=== PATIENT | male | born 2000 | race Caucasian/White ===

== ENCOUNTER 2024-09-09 18:53 | Emergency (ER) | payer OTHER, SELFPAY ==
--- OUTSIDE RECORDS SUMMARY | 2024-09-09 18:56 | XMS_ITS | Referral Summary ---
Author Organization [facility] [employer] Address [address] [place] [address] Care Team Providers Care Lpn Cma Name Role Phone Unavailable Primary Care Provider Unavailabl e Source Comments [facility],non-owned Affiliates and Associated Physician Practices is amultiple site organization consisting of ambulatory clinics and hospital sitesin [place], [place], [place] and [place]. This disclosure is being madepursuant to the Care Everywhere program and may not contain all information available regarding this patient. Last updated 18.[facility] [employer] Allergies No known active allergies Medications Be aware that medications may not be up to date on this document. Always verify current medications with the patient. No known medications Active Problems No known active problems Immunizations Name Administration Dates Next Due INFLUENZA VACCINE, TRIV. (AF LURIA, FLUZONE TRIVALENT; 6MO+) (IIV3) 07/01/2012,06/08/2011,07/26/2007 DTaP VACCINE IM (6wk-6yrs) 03/26/2004,,03/05/1999,12/31,1998 HEP A PEDS 2 DOSE 06/04/2004,06/08/2003 HEP B VACCINE, PED/ADOL 1998,1998, HIB BOOSTER 12/23/1999,199 9,1998,10/24 INFLUENZA VACCINE 03/20/2010,200 9,06/27/2008,07/07,06/08/2005,08/18/2004,06/04/2004 INFLUENZA VACCINE, QUADR. (F LUZONE; FLULAVAL; FLUARIX; AFLURIA QUADRIVALENT; 6MO+), 0.5 ML (IIV4) 07/02/2015,07/27/2014 MENINGOCOCAL MENINGITIS 03/20/2010 MENINGOCOCCAL CONJUGATE (MCV4P) 07/02/2015 MMR 03/26/2004,08/20/1999 POLIO IPV 03/26/2004, 0,1998,10/24 ROTAVIRUS, PENTAVALENT 1998,1998 TDAP (7yrs+) 03/20/2010 VARICELLA 03/20/2010,09/01/1999 Social History Tobacco Use Types Packs/Day Years Used Date Smoking Tobacco: Never Alcohol Use Standard Drinks/Week Comments Not Asked 0 (1 standard drink = 0.6 oz pur e alcohol) Sex and Gender Information Value Date Recorded Sex Assigned at Not on file Gender Identity Not on file Sexual Orientation Not on file Last Filed Vital Signs Vital Sign Reading Time Taken Comments Blood Pressure 105/59 07/01/2012 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
--- OUTSIDE RECORDS SUMMARY | 2024-09-09 18:56 | XMS_ITS | Clinical Summary ---
Author Organization [facility] [employer] Address [address] [place] [address] Care Team Providers Care Oil Well Services Supervisor Name Role Phone Unavailable Primary Care Provider Unavailabl e Source Comments [facility],non-owned Affiliates and Associated Physician Practices is amultiple site organization consisting of ambulatory clinics and hospital sitesin [place], [place], [place] and [place]. This disclosure is being madepursuant to the Care Everywhere program and may not contain all information available regarding this patient. 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 VESSEL MATE Pulse 62 07/01/2012 9:00 AM FISHING VESSEL MATE Temperature 37.3 ??C (99.1 ??F) 08/18/2016 10:[address] Respiratory Rate - - Oxygen Saturation - - Inhaled Oxygen Concentration - - Weight 78.5 kg (173 lb) 08/18/2016 10:53 AM FISHING VESSEL MATE Height 181 cm (5' 11.25 ) 08/18/2016 10:53 AM CS T Body Mass Index 23.96 08/18/2016 10:53 AM FISHING VESSEL MATE Plan of Treatment Health Maintenance Due Date Last Done Comments HEPATITIS B VACCINE (4 of 4 - 4-dose series) 02/11/1999 1998, 1998, 1998 HIV SCREENING 2013 HPV VACCINE (1 - Male 3-dose series) 2013 HEPATITIS C SCREENING 08/09/2016 DTAP/TDAP/TD VACCINES (7 - Td or Tdap) 03/20/2020 03/20/2010, 03/26/2004, 12/23/1999, Additional history exists COVID-19 VACCINE ( - season) 2024 INFLUENZA VACCINE (#1) 2024 5, 07/27/2014, 07/01/2012, Additional history exists DEPRESSION SCREENING 08/09/2024 ZOSTER VACCINE (1 of 2) 2048 HIB VACCINE Completed 12/23/1999, 02/07, 1998, Additional history exists MENINGOCOCCAL VACCINE Completed 07/02/2015, 010 MENINGOCOCCAL (Group B) VACCINE Aged Out No longer eligible based on patient's age to complete this topic PNEUMOCOCCAL VACCINE Aged Out No long er eligible based on patient's age to complete this topic
--- OUTSIDE RECORDS SUMMARY | 2024-09-09 18:56 | XMS_ITS | Continuity of Care Document ---
Author Organization [facility] Address [address] [place] [address] Phone Care Team Providers Care Central Station Operator Name Role Phone Mitch Wallis MD Unavailable Unavailable Allergies, Adverse Reactions, Alerts Substance Reaction Status Criticality No Known Allergies Active No Inform ation Medications Medication Instructions Dosage Effective Dates (start - stop) Status Comments Adderall 20 mg tablet take 1 tablet by oral route 2 times every day before breakfast and at noon 20 MG - Active disp 10/27/19 Vistaril 50 mg capsule take 1 capsule by oral route every bedtime as needed 50 MG - Active PRN for insomnia, avoid driving or operate machines Problems Condition Type Effective Dates (start - stop) Clini ange Status Comments No Known Problems Procedures Procedure Date OFFICE/OUTPATIENT VISIT, EST PREV VISIT, EST, AGE 18-39 OFFICE/OUTPATIENT VISIT, EST OFFICE/OUTPATIENT VISIT, EST OFFICE/OUTPATIENT VISIT, EST OFFICE/OUTPATIENT VISIT, EST OFFICE/OUTPATIENT VISIT, EST PREV VISIT, NEW, AGE 18-39 OFFICE/OUTPATIENT VISIT, NEW Advance Directives Directive Yes / No Effective Date File Name No Information Encounters Encounter Description Practice Location Reason(s) For Visit Diagnoses Date Provider Providers Copied on Encounter [facility], [address], [id number], [place] tel:[phone] [facility] No Information 0 Bimal Meyer. [address], [place], [place], [address] , [place]. tel:[phone] Referring Provider: Sameera Cowan [address], [place], [place], [id number]. tel:[phone] OFFICE/OUTPAT IENT VISIT, [facility], [address], [place], [place], [address], [place] tel:[phone] [facility] insomnia1 (chief complaint) ADD (chief complaint) Attention deficitInsomnia Jf-2 0-202 0 Bimal Meyer. [address], [address], [place], [place], [address] , [place]. tel:[phone] Referring Provider: Sameera Cowan [address], [place], [place], [address]. tel:[phone] PREV VISIT, EST, AGE 18-39 [facility], [address], [place], [place], [address], [place] tel:[phone] [facility] PHysical (chief complaint) Encounter for general adult medical exam w abnormal findingsAttention deficit Sep-2 5-201 9 Bimal Meyer. [address], [address], [place], [place], [address] , [place]. tel:[phone] Referring Provider: Sameera Cowan [address], [place], [place], [address]. tel:[phone] OFFICE/OUTPAT IENT VISIT, [facility], [address], [place], [place], [address], [place] tel:[phone] [facility] ADD (chief complaint) Attention deficit Dirk-0 6-201 9 Bimal Meyer. [address], [address], [place], [place], [address] , [place]. tel:[phone] Referring Provider: Sameera Cowan [address], [place], [place], [address]. tel:[phone] OFFICE/OUTPAT IENT VISIT, [facility], [address], [place], [place], [address], [place] tel:[phone] [facility] ADD1 (chief complaint) Attention deficit Oct- 9 Bimal Meyer. [address], [address], [place], [place], [address] , [place]. tel:[phone] Referring Provider: Mitch Wallis, [address], [place], [place], [address]. tel:[phone] OFFICE/OUTPAT IENT VISIT, [facility], [address], [place], [place], [address], [place] tel:[phone] [facility] ADD (chief complaint) Attention deficit 8 Bimal Meyer. [address], [address], [place], [place], [address] , [place]. tel:[phone] Referring Provider: Mitch Wallis, [address], [place], [place], [address]. tel:[phone] OFFICE/OUTPAT IENT VISIT, [facility], [address], [place], [place], [address], [place] tel:[phone] [facility] ADD (chief complaint) Attention deficit 8 Bimal Meyer. [address], [place], [place], [address] , [place]. [phone] Referring Provider: Sameera Cowan [address], [place], [place], [address]. tel:[phone] PREV VISIT, NEW, AGE 18-39 [facility], [address], [place], [place], [address], [place] [phone] [facility] PHysical (chief complaint) Encounter for general adult medical exam w abnormal findingsAttention deficit Sep 8 Bimal Meyer. [address], [place], [place], [address] , [place]. tel:[phone] Referring Provider: Sameera Cowan [address], [place], [place], [address]. tel:[phone] Family History Family Member Type Diagnosis Age At Onset Father Problem (finding) Alive and well Mother Problem (finding) Alive and well Brother Problem (finding) Alive and well Payers Payer name Insurance type Covered constitution party ID Authoriza tion(s) No Information Social History Type Description Quantity Date Captured Comments Alcohol Use Details Unknown Caffeine Use Details Unknown Tobacco Use Status No Information Smoking Status No Information Sex Male Chief Complaint And Reason For Visit No Information Plan Of Treatment Date Type Action Status Goal Special diet education compl eted History Of Present Illness Encounter Date Complaint History Of Prese nt Illness ADD Pt has ADD pt do ing ok with adderall. Pt feels more focused . Pt denies any chest pain or headache insomnia1 Pt has intermitt ent insomnia Pt denies any snoring Pt denies any trouble with breathing at night Pt does a lo tof shift work and sometimes he works during the day and sometimes at night and he has difficulty falling asleep at night sometimes Pt failed OTC melanotonin PHysical Pt needs annual physical. Pt has ADD, inattentive type. Patient feels scatterbrained. Patient feel poor focus and difficulty completing tasks. Patient states that Adderall is helping with symptoms. Patient feels more focused. Pt feels more energy. Patient denies any headache, dry mouth, headache, chest pain. Patient denies any appetite loss. Patient denies any other complaints ADD Patient has ADD. Patient has inattentive type. Patient feels scatterbrained. Patient feel poor focus and difficulty completing tasks. Patient states that Adderall is helping with symptoms. Patient feels more focused. Pt feels more energy. Patient denies any headache, dry mouth, headache, chest pain. Patient denies any appetite loss. ADD1 Pt has ADD, inat tentive type Pt has difficulty with focus and concentration. Pt feels much improved with adderall. Pt feels more motivated and more efficient at work. Pt states that the 2nd dose of adderall which is 10 mg in the afternoon does not last long enough for him to go through his work days. Pt denies any side effects. ADD Pt has ADD, inat tentive type. Pt doing much better with adderall with booster dose in the early afternoon. Pt feels more focused. Pt denies any dry mouth, chest pain, palpitation, etc. ADD Patient has ADD. Patient has not inattentive type. Patient feels scatterbrained. Patient feel poor focus and difficulty completing tasks. Patient states that Adderall is helping with symptoms. Patient feels more focused. Pt feels more energy. Patient denies any headache, dry mouth, headache, chest pain. Patient denies any appetite loss. Patient stated that Adderall initially worked really well however he noticed that he only last about 4 5 hours and he noticed the medication wears off around noontime PHysical Pt needs annual physical. Pt has ADD, inattentive type since high school Pt was never treated Pt has difficulty with focus and concentration. Pt has difficulty following instructions pt feels easily distracted Pt also is taking online class for stock trading at night and he noticing that he cannot sit through the class without wondering around and not remembering anything. His friend and co worker told him about adderall which did help his friend pt wants to try adderall aslo. Pt denies any other complaints Instructions Date Instruction Additional Infor mation Increase physical activity Relat ed to Encounter for general adult medical exam w abnormal findings Special diet education Related t o Body mass index (BMI) 23.0-23.9, adult Increase physical activity Relat ed to Attention deficit Weight management Related to Att ention deficit Increase physical activity Relat ed to Attention deficit Weight management Related to Att ention deficit Increase physical activity Relat ed to Attention deficit Increase physical activity Relat ed to Attention deficit Increase physical activity Relat ed to Encounter for general adult medical exam w abnormal findings Assessments Type Assessment Date No Information
--- OUTSIDE RECORDS SUMMARY | 2024-09-09 18:56 | XMS_ITS | Encounter Summary ---
Author Organization [facility] Address [address] [place] [address] Care Team Providers Care Party Plan Demonstrator Name Role Phone Deann Vizcaino MD Primary Care Provider [phone] Mathieu Dsouza MD Primary Care Provider [phone] Whit Cheatham MD Primary Care Provider [phone] Encounter Details Date Type Department Care Team (Late st Contact Info) Description 12/15/2011 [facility] Outpatient Visit [facility] [address] [place] [address] Deann Vizcaino MD [address] [place] [address] Social History Tobacco Use Types Packs/Day Years Used Date Smoking Tobacco: Never Assessed Sex and Gender Information Value Date Recorded Sex Assigned at Not on file Gender Identity Not on file Sexual Orientation Not on file documented as of this encounter Plan of Treatment Not on file documented as of this encounter Visit Diagnoses Not on filedocumented in this encounter Care Teams Party Plan Demonstrator Relationship Specialty Start Date End Date Deann Vizcaino MD PCP - General Pediatrics 10/01/11 05/13/14 Mathieu Dsouza MD [address] [place], [place] [id number] PCP - General Pediatrics 05/14/14 10/21/14 Whit Cheatham MD [address] [place], [place] [id number] PCP - General Pediatrics 10/22/14 08/30/17 documented as of this encounter
--- OUTSIDE RECORDS SUMMARY | 2024-09-09 18:56 | XMS_ITS | Patient Health Summary ---
Author Organization [facility] [employer] Address [address] [place] [address] Care Team Providers Care Uptwist Spinner Name Role Phone Unavailable Primary Care Provider Unavailabl e Note from [facility],non-owned Affiliates and Associated Physician Practices is amultiple site organization consisting of ambulatory clinics and hospital sitesin [place], [place], [place] and [place]. This disclosure is being madepursuant to the Care Everywhere program and may not contain all information available regarding this patient. Last updated 18.[facility] [employer] Allergies No known active allergies Medications Be aware that medications may not be up to date on this document. Always verify current medications with the patient. No known medications Active Problems No known active problems Immunizations * INFLUENZA VACCINE, TRIV. (AFLURIA, FLUZONE TRIVALENT; 6MO+) (IIV3)(Given 07/01/2012, 06/08/2011, 07/26/2007) * DTaP VACCINE IM (6wk-6yrs)(Given 03/26/2004, 12/23/1999, 03/05/1999, 1998, 1998) * HEP A PEDS 2 DOSE(Given 06/04/2004, 06/08/2003) * HEP B VACCINE, PED/ADOL(Given 1998, 1998, 1998) * HIB BOOSTER(Given 12/23/1999, 03/05/1999, 1998, 1998) * INFLUENZA VACCINE(Given 03/20/2010, 04/16/2009, 06/27/2008, 07/07/2006, 06/08/2005, 08/18/2004, 06/04/2004) * INFLUENZA VACCINE, QUADR. 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 HOSPITALIST Pulse 62 07/01/2012 9:00 AM HOSPITALIST Temperature 37.3 ??C (99.1 ??F) 08/18/2016 10:[address] Respiratory Rate - - Oxygen Saturation - - Inhaled Oxygen Concentration - - Weight 78.5 kg (173 lb) 08/18/2016 10:53 AM HOSPITALIST Height 181 cm (5' 11.25 ) 08/18/2016 10:53 AM CS T Body Mass Index 23.96 08/18/2016 10:53 AM HOSPITALIST Procedures * STREP A SCREEN - POINT OF CARE (AMB)(Performed 08/18/2016) Performed for Strep throat * XR THORACIC SPINE 2VW(Performed 09/13/2014) Performed for Upper back pain, chronic Results * (ABNORMAL) STREP A SCREEN - POINT OF CARE (AMB) (08/18/2016) Strep A Rapid POCT Positive(A) Negative Strep A Internal Control Present Other ENTIRE THROAT (SURFACE REGION OF NECK) / Unknown 08/18/2016 Bennett Santamaria DO LAB - POINT OF CARE ORDERABLES * XR THORACIC SPINE 2 VW (09/13/2014) Anatomical Region Laterality Modality Spine Other Mathieu Dsouza MD DIAGNOSTIC REECE G ORDERABLES
--- OUTSIDE RECORDS SUMMARY | 2024-09-09 18:56 | XMS_ITS | Clinical Summary ---
Author Organization [facility] Address [address] [place] [address]. [place] [address] [place] [address] Care Team Providers Care Cocoa Powder Mixer Operator Name Role Phone Edy Frausto MD Primary Care Provider [phone] Allergies No known active allergies Medications amphetamine-dext roamphetamine 20 MG tablet TK 1 T PO BID B AMALIA AND AT NOON 11/20/2019 Active HYDROcodone-acet aminophen 7.5-325 MG tablet TK 1 T PO Q 6 H FOR 7 DAYS PRN 11/23/2019 Active hydrOXYzine 50 MG capsule TK 1 C PO QHS PRN 08/28/2019 Active Social History Tobacco Use Types Packs/Day Years Used Date Smoking Tobacco: Never Assessed Sex and Gender Information Value Date Recorded Sex Assigned at Not on file Legal Sex Male 6:33 PM CDT Gender Identity Not on file Sexual Orientation Not on file Plan of Treatment Health Maintenance Due Date Last Done Comments Hepatitis B Vaccines (4 of 4 - 4-dose series) 02/11/1999 1998, 1998, 1998 Annual Physical 2001 PHQ-2 (Physician [place]) 2010 HPV Vaccines (1 - Male 3-dose series) 2013 Hepatitis C 2016 COVID-19 Vaccine ( - 2023- season) 2024 Influenza Adult (#1) 2024 07/16/2017, 07/02/2015, 07/27/2014, Additional history exists PHQ-2 (Physician [place]) 08/09/2024 DTaP, Tdap and Td Vaccines (8 - Td or Tdap) 04/08/2030 04/08/2020, 03/20/2010, 03/26/2004, Additional history exists Meningococcal Vaccine Completed 07/02/2015, 010 Meningococcal B Vaccine Aged Out No l onger eligible based on patient's age to complete this topic Pneumococcal Vaccine: Pediatrics (0 to 5 Years) and At-Risk Patients (6 to 64 Years) Aged Out No longer eligible based on patient's age to complete this topic RSV Immunizations Under 20 Months Aged Out No longer eligible based on patient's age to complete this topic Insurance [employer] [facility] [employer] [employer] Care Teams Cocoa Powder Mixer Operator Relationship Specialty Start Date End Date Edy Frausto MD [address] [place] [address] PCP - General FAMILY PRACTICE 03/21/24
--- OUTSIDE RECORDS SUMMARY | 2024-09-09 18:59 | XMS_ITS | Continuity of Care Document ---
Author Organization [facility] Address [address] [place] [address] Phone Care Team Providers Care Oven Technician Name Role Phone Mitch Wallis MD Unavailable Unavailable Allergies, Adverse Reactions, Alerts Substance Reaction Status Criticality No Known Allergies Active No Inform ation Medications Medication Instructions Dosage Effective Dates (start - stop) Status Comments Vistaril 50 mg capsule take 1 capsule by oral route every bedtime as needed 50 MG - Active PRN for insomnia, avoid driving or operate machines Adderall 20 mg tablet take 1 tablet by oral route 2 times every day before breakfast and at noon 20 MG - Active disp 10/27/19 Problems Condition Type Effective Dates (start - [...] Diagnoses Date Provider Providers Copied on Encounter [facility], [address] [place], [address], [place] tel:[phone] [facility] No Information 0 Bimal Meyer. [address], [place], [place], [address] , [place]. tel:[phone] Referring Provider: Sameera Cowan [address], [place], [place], [address]. tel:[phone] OFFICE/OUTPAT IENT VISIT, [facility], [address], [place], [place], [address], [place] tel:[phone] [facility] insomnia1 (chief complaint) ADD (chief complaint) Attention deficitInsomnia Jf-2 0-202 0 Bimal Meyer. [address], [place], [place], [address] , [place]. tel:[phone] Referring Provider: Sameera Cowan [address], [place], [place], [address]. tel:[phone] PREV VISIT, EST, AGE 18-39 [facility], [address], [place], [place], [address], [place] tel:[phone] [facility] PHysical (chief complaint) Encounter for general adult medical exam w abnormal findingsAttention deficit Sep-2 5-201 9 Bimal Meyer. [address], [place], [place], [address] , [place]. tel:[phone] Referring Provider: Sameera Cowan [address], [place], [place], [address]. tel:[phone] OFFICE/OUTPAT IENT VISIT, [facility], [address], [place], [place], [address], [place] tel:[phone] [facility] ADD (chief complaint) Attention deficit Dirk-0 6-201 9 Bimal Meyer. [address], [place], [place], [address] , [place]. tel:[phone] Referring Provider: Sameera Cowan [address], [place], [place], [address]. tel:[phone] OFFICE/OUTPAT IENT VISIT, [facility], [address], [place], [address], [place] tel:[phone] [facility] ADD1 (chief complaint) Attention deficit Oct- 9 Bimal Meyer. [address], [place], [place], [address] , [place]. tel:[phone] Referring Provider: Mitch Wallis, [address], [place], [place], [address]. tel:[phone] OFFICE/OUTPAT IENT VISIT, [facility], [address], [place], [place], [address], [place] tel:[phone] [facility] ADD (chief complaint) Attention deficit 8 Bimal Meyer. [address], [place], [place], [address] , [place]. tel:[phone] Referring Provider: Mitch Wallis, [address], [place], [place], [address]. tel:[phone] OFFICE/OUTPAT IENT VISIT, [facility], [address], [place], [address], [place] tel:[phone] [facility] ADD (chief complaint) Attention deficit 8 Biaml Meyer. [address], [place], [place], [address] , [place]. [phone] Referring Provider: Sameera Cowan [address], [place], [place], [address]. tel:[phone] PREV VISIT, NEW, AGE 18-39 [facility], [address], [place], [place], [address], [place] [phone] [facility] PHysical (chief complaint) Encounter for general adult medical exam w abnormal findingsAttention deficit Sep 8 Bimal Meyer. [address], [place], [place], [address] , [place]. tel:[phone] Referring Provider: Sameera Cowan [address], [place], [place], [address]. tel:[phone] Family History Family Member Type Diagnosis Age At Onset Father Problem (finding) Alive and well Mother Problem (finding) Alive and well Brother Problem (finding) Alive and well Payers Payer name Insurance type Covered democrat ID Authoriza tion(s) No Information Social History [...] Date Complaint History Of Prese nt Illness insomnia1 Pt has intermitt ent insomnia Pt denies any snoring Pt denies any trouble with breathing at night Pt does a lo tof shift work and sometimes he works during the day and sometimes at night and he has difficulty falling asleep at night sometimes Pt failed OTC melanotonin ADD Pt has ADD pt do ing ok with adderall. Pt feels more focused . Pt denies any chest pain or headache PHysical Pt needs annual physical. Pt has [...] complaints Instructions Date Instruction Additional Infor mation Special diet education Related t o Body mass index (BMI) 23.0-23.9, adult Increase physical activity Relat ed to Encounter for general adult medical exam w abnormal findings Increase physical activity Relat ed to Attention [...]
--- OUTSIDE RECORDS SUMMARY | 2024-09-09 18:59 | XMS_ITS | Clinical Summary ---
Author Organization [facility] Address [address] [place] [address] Care Team Providers Care Skirt Clipper Name Role Phone Livan Harris MD Primary Care Provider + Allergies No known active allergies Medications dextroamphetamin e-amphetamine (ADDERALL) 30 mg tablet 30 mg 2 (two) times a day Active Active Problems Problem Noted Date Diagnosed Date Attention deficit hyperactivity disorder (ADHD) 04/08/2020 Assessment & Plan (04/08/2020 4:31 PM CDT): - pt dx 1 yr ago via previous PCM questions, no hx as child - discussed need for neuropsych testing to ensure this is ADHD since he has no hx of a need for stimulants as a child. - pt refused neuropsych testing at this time - pt to call back if he decides he is willing to do neuropsych testing and I will then rx stimulant once dx made by testing. Immunizations Name Administration Dates Next Due DTaP 03/26/2004, 0,03/05/1999,12/31,1998 Flucelvax Influenza Quad 07/16/2017 Hep A, Pediatric 06/04/2004,06/08/2003 Hep B, Adolescent or Pediatric 1998,1998,1998 HiB 12/23/1999, 9,1998,10/24 Hib (PRP-D) 12/23/1999, 9,1998,10/24 IPV 03/26/2004, 0,1998,10/24 Influenza, Quadrivalent, Spl it, Preservative Free, Intramuscular 07/02/2015,07/27/2014 Influenza, Trivalent, IM (MDV) 07/01/2012,2010,07/26/2007 Influenza, Unspecified 03/20/2010,2008,06/27/2008,07/07,06/08/2005,08/18/2004,06/04/2004 MMR 03/26/2004,08/20/1999 Meningococcal MCV4P (Menactra) 07/02/2015 Meningococcal Polysaccharide (Menomune) 03/20/2010 Rotavirus Pentavalent 1998,1998 Tdap 04/08/2020,03/20/2010 Varicella 03/20/2010,09/01/1999 Medical History Medical History Date Comments ADHD (attention deficit hyperactivity disorder) Family History Relation Name Status Comments Father Alive Mother Alive Social History Tobacco Use Types Packs/Day Years Used Date Smoking Tobacco: Never Alcohol Use Standard Drinks/Week Comments Never 0 (1 standard drink = 0.6 oz pur e alcohol) AUDIT-C Answer Date Recorded Q1: How often do you have a drink containing alc ohol? 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 Gender Identity Not on file Sexual Orientation Not on file Obstetrics History Last Filed Vital Signs Vital Sign Reading Time Taken Comments Blood Pressure 104/70 04/08/2020 4:16 PM CDT Pulse 64 04/08/2020 4:16 PM CDT Temperature 37.3 ??C (99.1 ??F) 04/08/2020 4:16 PM CD T Respiratory Rate 16 04/08/2020 4:16 PM CDT Oxygen Saturation 99% 04/08/2020 4:16 PM CDT Inhaled Oxygen Concentration - - Weight 76.7 kg (169 lb) 04/08/2020 4:16 PM CDT Height 179.1 cm (5' 10.5 ) 04/08/2020 4:16 PM CD T Body Mass Index 23.91 04/08/2020 4:16 PM CDT Plan of Treatment Not on file Insurance [facility] CMR Care Teams Skirt Clipper Relationship Specialty Start Date End Date Livan Harris MD [address] [place] [id number] PCP - General Family Medicine 04/08/20
--- OUTSIDE RECORDS SUMMARY | 2024-09-09 18:59 | XMS_ITS | Referral Summary ---
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
--- OUTSIDE RECORDS SUMMARY | 2024-09-09 18:59 | XMS_ITS | Data Portability ---
Author Organization [facility] Address [address] [place] [address] Care Team Providers Care Medical Clinic Manager Name Role Phone SAMMY FRAUSTO Primary Care Provider Unavailabl e Assessment Encounter Date Assessment Date Assessment LastModified by Organization Details LastModified Time 01/18/2024 01/18/2024 23 yo; No PMHx; presenting for left knee pain. [email or web address] Not available 01/18/2024 18:36:18 03/21/2024 03/21/2024 23 yo; No PMHx; presenting to the clinic for a follow up on his left knee pain. [email or web address] Not available 03/21/2024 12:56:28 Plan of Treatment Reminders Order Date Submit Date Provider Last Modified By Organization Details Last Modified Time Details Appointments None recorde d. Lab None recorde d. Referral physica l therapi st referra l 2023 024 [facility] (Outpatient Physical Therapy/Work Conditioning) , [facility]? [facility], [place], [address], 4 15:33:36 Procedures None recorde d. Surgeries None recorde d. Imaging XR, knee, 3 view 2023 024 [facility] ([facility]), [address] [place], [address], 4 10:48:58 XR, knee, 3 view 2023 024 [facility] Scheduling, [place], [address], 09:15:12 Medication Orders lidocai ne 5 % topical patch [address] [id number], [address] [place], [place], [id number], 12:55:32 ibuprof en 800 mg tablet 2023 024 [facility]6 [id number], [address], [place], [id number], 12:55:32 Patient TargetsNo targets recorded. Patient Instructions Encounter Date Encounter Id Patient Instructions Last Modified By Organization Details Last Modified Time 01/18/2024 [id number] I was present an d available in the Family Medicine clinic to discuss this patient's care for the duration of the appointment. I agree with the resident's assessment and plan as documented with the following addendum: None. Dr. Dragan Peck MD Attending Physician, [facility]. [email or web address] Not available 01/20/2024 10:13:35 03/21/2024 [id number] I was present an d available in the Family Medicine clinic to discuss this patient's care during the appointment. I agree with the resident's assessment and plan as documented. [email or web address] Not available 03/24/2024 14:37:11 Reason for Referral Physical Therapist Referral for Pain of left knee joint Referring Physician: Sammy Frausto, Medical Superintendent, Encounter Date: 03/21/2024 Results Created Date Observation Date Name Description Value Unit Range Abnormal Flag Note LastModifiedBy Organization Detail LastModifiedTime 03/21/20 24 XR, knee, [address] [facility] [address] [place] [address] 3 VIEWS OF THE LEFT KNEE Clinic al Histor y: Pain Compar mamadou: None 3 views of the left knee demons trate the bony elemen ts to be intact . There is no eviden ce of fractu re or disloc ation. The surrou nding soft tissue s appear normal . IMPRES MOISÉS: No acute findin gs Ordere d By: PARIS FRAUSTO Electr onical ly Signed By: Daniel alfaro MD on 2:41 PM Interp reted By: Daniel alfaro MD, 2:41 PM [facility] Scheduling [facility], [place], [address], 03/30/2024 09:17:10 Result Notes None recorded. Procedures Surgical History None recorded. Imaging Results Imaging Date Name Status LastModified by Organiz ation Details LastModified Time 03/21/2024 XR, knee, 3 view completed [facility] [place], [address], 03/30/2024 09:17:10 Procedure Notes None recorded. Medical Equipment None Reported. Allergies No known drug allergies Medications Name Sig Start Date Stop Date Status Note LastModified by Organization Details LastModified Time ibuprofen 800 mg tablet TAKE 1 TABLET BY MOUTH THREE TIMES DAILY active Not Available Not Available No t Available meloxicam 15 mg tablet Take 1 tablet every day by oral route. active Not Available Not Available No t Available meloxicam 7.5 mg tablet TAKE 1 TABLET BY MOUTH DAILY NEEDED active Not Available Not Available No t Available lidocaine 5 % topical patch APPLY 1 PATCH BY TOPICAL ROUTE ONCE DAILY (MAY WEAR UP TO 12HOURS.) active Not Available Not Available No t Available cyclobenzap rine 5 mg tablet TAKE 1 TABLET BY MOUTH THREE TIMES DAILY NEEDED active Not Available Not Available No t Available duloxetine 30 mg capsule,del ayed release TAKE 1 CAPSULE BY MOUTH EVERY DAY 03/21 completed Not Available Not Available Not Available diclofenac 1 % topical gel APPLY 2 GRAMS TOPICALLY TO THE AFFECTED AREA FOUR TIMES DAILY active Not Available Not Available No t Available Vitals Date Recorded Body height Provider Name an d Address Organization Details Last Updated DateTime 01/18/2024 182.88 cm Rhiannon Rios [place] [facility] 2023 16:54:39 Date Recorded Body mass index (BMI) Body weight Provider Name and Address Organization Details Last Updated DateTime 01/18/2024 26 kg/m2 89539.74 g JacobyAlma Delia Blanca CINTIA [facility] 01/18/2024 16:54:41 Date Recorded Body temperature Provider Name a nd Address Organization Details Last Updated DateTime 01/18/2024 97.4 [degF] Rhiannon Rios MA [facility] 01/18/2024 16:55:26 Date Recorded Oxygen saturation Oxygen saturation in Arterial blood by Pulse oximetry Provider Name and Address Organization Details Last Updated DateTime 01/18/2024 97 % 97 % JacobyAlma Delia Rios [facility] 01/18/2024 16:55:28 Date Recorded Heart rate Provider Name an d Address Organization Details Last Updated DateTime 01/18/2024 69 /min JacobyAlma Delia Rios [facility] 2023 16:55:32 Date Recorded Body height Provider Name an d Address Organization Details Last Updated DateTime 03/21/2024 182.88 cm Alex Irene MA [facility] 03/21/2024 10:00:02 Date Recorded Body temperature Provider Name a nd Address Organization Details Last Updated DateTime 03/21/2024 97.4 [degF] Alex Irene MA [facility] 03/21/2024 10:00:19 Date Recorded Body mass index (BMI) Body weight Provider Name and Address Organization Details Last Updated DateTime 03/21/2024 26.4 kg/m2 14178.72 g Alex Irene MA [facility] 03/21/2024 10:00:26 Date Recorded Oxygen saturation Oxygen saturation in Arterial blood by Pulse oximetry Provider Name and Address Organization Details Last Updated DateTime 03/21/2024 99 % 99 % Alex Irene MA [facility] 03/21/2024 10:00:37 Date Recorded Heart rate Provider Name an d Address Organization Details Last Updated DateTime 03/21/2024 60 /min Alex Irene MA [facility] 03/09 10:00:41 Date Recorded Systolic blood pressure Diastolic blood pressure Provider Name and Address Organization Details Last Updated DateTime 01/18/2024 114 mm[Hg] 72 mm[Hg] Rhiannon Rios MA [place] [facility] 01/18/2024 16:55:53 Date Recorded Systolic blood pressure Diastolic blood pressure Provider Name and Address Organization Details Last Updated DateTime 03/21/2024 115 mm[Hg] 73 mm[Hg] Alex Irene MA [place] - [facility] 03/21/2024 10:01:26 Social History Question Answer Notes LastModified by Organizat ion Details LastModified Time Tobacco Smoking Status Never Smoker Rhiannon Rios MA null, [place] [facility] 01/18/2024 16:54:33 What Was The Date Of Your Most Recent Tobacco Screening? 03/21/2024 [email or web address] Information not available 03/21/2024 Sex: Unknown Functional Status None recorded. Mental Status None recorded. Family History Nothing Reported. Medical History No medical history recorded. Past Encounters Encounter ID Performer Location Encounter Start Date Encounter Closed Date Diagnosis/Indication Diagnosis SNOMED-CT Code Diagnosis ICD10 Code Diagnosis Note [id number] DRAGAN PECK MD [facility] [address] [address] 01/18/2024 16:46:33 01/20/2024 14:53:48 Pain of left knee joint [id number] 56389 M25.562 Acute on chronic. States that in 2017 he had an avulsion fracture on his distal medial left sided femur, which later had stepped incorrectl y, which shifted the avulsed bone onto his patella tendon. S/P surgery, with removal of the avulsed bone. Prior to surgery was unable to extend his knee. Pain is a 3-4/10 at rest, 7-8/10 with walking and weight bearing. Occasional ly utilizes tylenol with some alleviatio n. Works in [employer] on and is often on his B/L knees.- PE with tenderness of medial aspect of left knee joint. Negative anterior / posterior drawer and varus / valgus stress test. Strength and neurovascu larly intact. Pt stated that he had pain around his knee with extension. - No xrays in our records, will obtain xrays of left knee- Pt reported getting PLT injections in his left knee in the past. Stated that he did not feel like they alleviated any of the pain- Offered orthopedic referral for discussion for knee injections ; however, pt would like to hold off for now- Further management pending imaging [id number] Ernie Meadows MD [facility] 47 3 [facility] [address] [place] [address] 03/21/2024 09:48:39 03/27/2024 09:50:15 Pain of left knee joint [id number] 27352 M25.562 Acute on chronic.St ates that [id number] had an avulsion fracture on his distal medial left sided femur, which later had stepped incorrectl y, which shifted the avulsed bone onto his patella tendon.S/P surgery, with removal of the avulsed bone. Prior to surgery was unable to extend his knee. Pain is a 5-6/10 at rest, 9-10/10 after traveling. Reports self medicating with oxy with alleviatio n. Works in [employer] on and is sometimes on his B/L knees.- Previous PE on 01/18/2024 with tenderness of medial aspect of left knee joint. Negative anterior / posterior drawer and varus / valgus stress test. Strength and neurovascu larly intact. Pt stated that he had pain around his knee with extension. o- No xrays in our records, will obtainxray sof left knee.- Pt reported gettingPRP injections in his left knee in the past. Stated that he did not feel like they alleviated any of the pain. States that he had several injections in the past.- Offeredort hopedic referralfo r discussion of further evaluation given hx of surgery and possible future referral to pain medicine if pain continues to be refractory - Pt states that he is not interested in injections or surgical interventi ons at this time, requesting pain medication s- D/w pt supportive conservati ve therapy at this time, however, pt requesting further pain control. D/w pt that narcotics are not indicated and the risks of self medicating with opioids Plan:- Discontinu ed duloxetine as it has not been helping- Startibupr ofen 800mgup to 3xday- Trial lidocaine patches- PT referral placed- Xray orders in- F/u in 4-6 weeks, if pain is not improved will consider tramadol. Health Concerns Section Related Observation LastModified by Organization Detai ls LastModified Time None Recorded Concern Status LastModified by Organization Details LastModified Time None Recorded Advance Directives Directive None Recorded Payers Encounter Date Sequence Insurance Name Policy Number Policy Renteria Covered Member ID Renteria Member ID Guarantor Name 01/18/2024 1 *SELF PAY* Dr juan Alanis 03/21/2024 1 [employer] [id number] Ralph Alanis [id number] Ralph Alanis Notes Date Note Type Note Provider Name and Address Organization Details Recorded Time 01/18/2024 text/html 23 yo; No PMHx; presenting for left knee pain. DRAGAN PECK MD Attn: Accounting,[address] [place], [address], [facility] 01/20/2024 10:13:42 03/21/2024 text/html 23 yo; No PMHx; presenting to the clinic for a follow up on his left knee pain.He has tried PRP shot 1x/year for 3 years, last shot 1-2 years ago, reports it did not help too much.Additionally reports duloxetine has not helped.He reports self medicating with oxy once every ~2wks to help with pain as it gets to 9-10/10 after sitting for several hours as he has to travel a lot for his job. Pain is 5-6/10 at baseline.Addition ally, after surgery in [id number] he tried PT 1-2x/week for a short while but reports it did not help, he reports it is difficult to attend consistent PT as he travels for his job.Last x-ray around ~1yr ago, he reports it was normal and will attempt to get the imaging from his previous provider. Pt denies having any fevers, chills, SOB, chest pain, N/V, or abdominal pain. Ernie Meadows MD Attn: Accounting,[address] [facility] [address], [place], [address], [facility] 03/24/2024 14:37:14
--- NOTE | 2024-09-09 19:00 | ED.GENADULT ---
HPI - General Adult General Chief complaint: Upper Respiratory Infection Stated complaint: cough Time Seen by Provider: 09/09/24 19:00 Source: patient Mode of arrival: ambulatory Limitations: no limitations History of Present Illness HPI narrative: 24-year-old male patient presents to the [facility] with complaints of a cough for the past week. Patient states he had some kind of virus for the past week and continues to have a cough. Patient states the cough is a little bit better states it is worse in the morning when he 1st wakes up and it comes on throughout the day. Patient states he is concerned cousin he has some wheezing. Denies fevers body aches or chills currently. Patient states he was trying to take some [id number] Mucinex. Related Data Allergies Allergy/AdvReac Type Severity Reaction Status Date / Time No Known Allergies Allergy Verified 09/09/24 19:12 Review of Systems Review of Systems: CONSTITUTIONAL: Denies fever, chills, or sweats. EYES: Denies visual changes, redness, or discharge. ENT: Denies rhinorrhea, congestion, sore throat, or otalgia. CARDIOVASCULAR: Denies chest pain, palpitations, or edema. RESPIRATORY: Positive cough , positive dyspnea. GASTROINTESTINAL: Denies abdominal pain, nausea, vomiting, or diarrhea. GENITOURINARY: Denies dysuria or hematuria. SKIN: Denies rash or itching. MUSCULOSKELETAL: Denies back pain, joint pain, or myalgia. NEUROLOGIC: Denies headache, numbness, or weakness. PSYCHIATRIC: Denies anxiety or depression. PMFSH Comments At the time of my signature I agree with nursing past medical history, surgical, social, and family history. There is no relevant family history pertinent to the presenting complaint. Exam Narrative: GENERAL: Well-appearing, well-nourished, and in no acute distress. HEAD: Normocephalic, atraumatic. EYES: PERRLA and EOMI. ENT: Nares clear, no rhinorrhea or epistaxis. Mucous membranes moist. posterior pharynx with no erythema, tonsillar enlargement, exudates or lesions present. Bilateral TMs are clear no erythema foreign bodies the canal. NECK: Supple. No lymphadenopathy CHEST: Patient has some expiratory wheezing noted to bilateral lower lobes and left upper lobe on auscultation. No respiratory distress. HEART: Regular rate and rhythm. No murmur heard. Normal peripheral pulses. ABDOMEN: Soft, nontender, nondistended, normal active bowel sounds. EXTREMITIES: Normal range of motion. No edema. SKIN: Warm, dry, no rash. NEURO: No focal deficits. Alert and oriented x3. Course Course Level of Care: Express Care Visit Vital Signs Vital signs: Vital Signs Temperature 36.7 C 09/09/24 19:05 Pulse Rate 78 09/09/24 19:05 Respiratory Rate 18 09/09/24 19:05 Blood Pressure 104/74 09/09/24 19:05 Pulse Oximetry 100 09/09/24 19:05 Oxygen Delivery Room Air 09/09/24 19:05 Temperature 36.7 C 09/09/24 19:05 Pulse Rate 78 09/09/24 19:05 Respiratory Rate 18 09/09/24 19:05 Blood Pressure 104/74 09/09/24 19:05 Pulse Oximetry 100 09/09/24 19:05 Oxygen Delivery Room Air 09/09/24 19:05 Vital signs reviewed. Medical Decision Making MDM Narrative Medical decision making narrative: discussed with patient we will discharge him home with some oral steroids and Tessalon Perles for the cough. Discussed with patient he can take any Tylenol and ibuprofen as needed for any pain. And he should follow up with his primary doctor as needed. Patient verbalized understanding denies any other questions or concerns at this time. Differential Diagnosis Differential Diagnosis: Differential diagnosis: Allergic rhinitis, chronic sinusitis, tonsillitis, acute sinusitis, infectious mononucleosis, seasonal influenza, pertussis, diphtheria, meningococcal disease, viral syndrome, viral bronchitis, RSV, COVID-19 Vital Signs Vital Signs: Vital Signs Temperature 36.7 C 09/09/24 19:05 Pulse Rate 78 09/09/24 19:05 Respiratory Rate 18 09/09/24 19:05 Blood Pressure 104/74 09/09/24 19:05 Pulse Oximetry 100 09/09/24 19:05 Oxygen Delivery Room Air 09/09/24 19:05 Temperature 36.7 C 09/09/24 19:05 Pulse Rate 78 09/09/24 19:05 Respiratory Rate 18 09/09/24 19:05 Blood Pressure 104/74 09/09/24 19:05 Pulse Oximetry 100 09/09/24 19:05 Oxygen Delivery Room Air 09/09/24 19:05 Critical Care Time Critical Care Time Critical Care Time: No Discharge Plan Discharge Clinical Impression: Viral URI with cough Patient Disposition: Home, Self-Care Condition: Stable Instructions: Antibiotic Form, Acute Cough (ED) Additional Instructions: Viral illness may last between 7-12days; antibiotic is NOT recommended at this time. Recommend antihistamine such as Benadryl at night time and Claritin/Zyrtec/Radha during the day take oral steroids as directed please complete the entire course. Use inhaler as needed for cough, wheezing, shortness of breath or chest tightness. Also, recommend symptomatic treatment includes: rest, fluids, and increase humidity of the air at home. Recommend Acetaminophen or nonsteroidal anti-inflammatory agents (NSAIDs) as directed in the bottle to reduce fever and/pain/headache. Avoid smoking/second-hand smoke. Limit visits to areas with large crowds. Please schedule a follow-up visit with your personal physician for further evaluation and treatment within 3-5days. Including recheck and discussion of your blood pressure. If your symptoms persist, change or worsen significantly before you can contact your personal physician then please, without delay, go to the emergency department for further evaluation. Patient Language: Syriac Prescriptions: New benzonatate 200 mg capsule 200 mg PO TID PRN (Reason: cough) 10 Days Qty: 30 0RF prednisone 20 mg tablet 40 mg PO DAILY 5 Days Qty: 10 0RF Follow-up/Referrals: PHYSICIAN,[facility] [Primary Care Provider] - Time of Disposition: 19:32
[2024-09-09 19:05] VITALS: BP 104/74; PULSE 78; RESP 18; TEMP 36.7; O2SAT 100
== END 2024-09-09 19:38 | disposition home or self-care (01) ==
PROVIDERS: Emergency Provider Nurse Practitioner Family
DX: J06.9 Acute upper respiratory infection, unspecified (principal); R05.9 Cough, unspecified
CPT/HCPCS: 99203; G0463